=== PATIENT | male | born 1965 | race Caucasian/White ===

== ENCOUNTER 2019-06-17 16:23 | Observation (INO) ==
[2019-06-17] MEDS ORDERED: ENOXAPARIN 100 MG/ML SYRINGE SUBCUT STA (17:23)
[2019-06-17] MEDS ORDERED: ASPIRIN 325 MG TABLET PO STA (17:23)
[2019-06-17 17:29] LABS: Basophils % 0.3 % (0.0-0.8); Eosinophils % 0.3 % (0.00-10.9); Hematocrit 39.8 VOL% (42.0-52.0); Hemoglobin 13.3 GM/DL (14.0-18.0); Immature Granulocytes % 0.4 %; Immature Granulocytes Absolute 0.04 #; Lymphocytes % 21.8 % (21.2-54.2); Mean Corpuscular HGB Conc 33.4 GM/DL (32-36); Mean Corpuscular Volume 100.3 FL (87-102); Mean Platelet Volume 9.1 FL (9.6-12.0); Monocytes % 7.5 % (1.7-12.7); Neutrophils % 69.7 % (38.7-73.9); Platelet Count 296 T/CUMM (130-400); Red Blood Count 3.97 MC/CUMM (3.8-5.5); Red Cell Distribution Width 13.4 % (9.3-17.3); White Blood Count 9.3 T/CUMM (4-12)
[2019-06-17] MEDS ORDERED: ENOXAPARIN 120 MG/0.8 ML SYRINGE SUBCUT ONE (17:33)
[2019-06-17 17:46] LABS: Alanine Aminotransferase 31 U/L (16-61); Albumin 3.7 G/DL (3.4-5.0); Alkaline Phosphatase 63 U/L (45-117); Aspartate Amino Transferase 23 U/L (0-37); Bilirubin,Total < 0.39 MG/DL (0.2-1.0); Blood Urea Nitrogen 18 MG/DL (7-18); Estimated Glom Filtration Rate 77 ML/MIN; Glucose 120 MG/DL (74-106); Osmolality,Calculated 279.5 MOS/KG (273-304); Total Protein 6.8 G/DL (6.4-8.3)
[2019-06-17] MEDS ORDERED: AZITHROMYCIN 250 MG TABLET PO SCH (19:30)
[2019-06-17] MEDS ORDERED: ALBUTEROL/IPRATROPIUM 3 ML NEB RESP TX PRN (19:30)
[2019-06-17] MEDS ORDERED: PANTOPRAZOLE 40 MG TABLET PO SCH (20:00)
[2019-06-17] MEDS ORDERED: IBUPROFEN 800 MG TABLET PO SCH (21:00)
[2019-06-17] MEDS: HALOPERIDOL 5 MG TABLET PO SCH (21:20)
[2019-06-17] MEDS: BENZTROPINE 1 MG TABLET PO SCH (21:20)
[2019-06-18] MEDS: NICOTINE 21 MG/24 HR PATCH TRANSDERM SCH ×2 (00:04→09:21)
[2019-06-18] MEDS: KETOROLAC 15 MG/1 ML VIAL IV PRN ×2 (02:19→09:16)
[2019-06-18 05:44] LABS: Basophils # 0.1 10*3/uL (0.0-0.2); Basophils % 0.4 % (0.0-0.8); Eosinophils # 0.1 10*3/uL (0.0-0.87); Eosinophils % 0.6 % (0.00-10.9); Hemoglobin 13.8 GM/DL (14.0-18.0); Immature Granulocytes % 0.4 %; Immature Granulocytes Absolute 0.05 #; Lymphocytes # 2.3 10*3/uL (1.4-4.0); Lymphocytes % 20.9 % (21.2-54.2); Mean Corpuscular HGB Conc 33.7 GM/DL (32-36); Mean Corpuscular Volume 98.1 FL (87-102); Mean Platelet Volume 9.2 FL (9.6-12.0); Monocytes % 9.8 % (1.7-12.7); Neutrophils % 67.9 % (38.7-73.9); Platelet Count 314 T/CUMM (130-400); Red Blood Count 4.18 MC/CUMM (3.8-5.5); Red Cell Distribution Width 13.2 % (9.3-17.3); White Blood Count 11.2 T/CUMM (4-12)
[2019-06-18] MEDS ORDERED: ENOXAPARIN 120 MG/0.8 ML SYRINGE SUBCUT SCH (06:00)
[2019-06-18] MEDS ORDERED: LEVOTHYROXINE 50 MCG TABLET PO SCH (06:00)
[2019-06-18 06:16] LABS: Calcium 9.1 MG/DL (8.5-10.1)
[2019-06-18] MEDS ORDERED: DOCUSATE SODIUM 100 MG CAPSULE PO SCH (08:00)
[2019-06-18] MEDS ORDERED: NON-FORMULARY MEDICATION (Methylprednisolone 4 MG) PO SCH (08:30)
[2019-06-18] MEDS ORDERED: DULoxetine 30 MG CAPSULE PO SCH (09:00)
[2019-06-18] MEDS ORDERED: THIAMINE 100 MG TABLET PO SCH (09:00)
[2019-06-18] MEDS ORDERED: MULTIVITAMIN (CENTRUM) TABLET PO SCH (09:00)
[2019-06-18] MEDS ORDERED: LOSARTAN 50 MG TABLET PO SCH (09:00)
[2019-06-18] MEDS: BENZTROPINE 1 MG TABLET PO SCH (09:20)
[2019-06-18] MEDS: HALOPERIDOL 5 MG TABLET PO SCH (09:24)
[2019-06-18 15:45] VITALS: BP 160/76
== END 2019-06-18 17:53 ==
LOC: N.ED 16:23 → N.EDINP 16:23 → N.TELEN 22:46
PROVIDERS: ADMIT Internal Medicine; ATTEND Internal Medicine